=== PATIENT | female | born 1975 | race Caucasian/White ===

== ENCOUNTER 2020-04-03 19:40 | Emergency (ER) | payer BC ==
[2020-04-03] MEDS ORDERED: Lidocaine 4% Cream 5 GM TUBE w/ Tegaderm ONE (19:52)
[2020-04-03] MEDS ORDERED: Adacel (T-DAP) 0.5 ML SYRINGE ONE (20:33)
[2020-04-03] MEDS ORDERED: traMADol HCl 50 MG TAB ONE (20:57)
[2020-04-03] MEDS ORDERED: Ibuprofen 800 MG TAB ONE (20:57)
--- NOTE | 2020-04-03 21:34 | CT ---
CT OF THE BRAIN WITHOUT CONTRAST: Date: 04-03-2020 FINDINGS: The ventricles are normal in size with no shift. No intracranial bleeding or extraaxial hematoma was seen. There is no sign of mass, edema, or stroke. An area of scalp injury is seen in the left frontal region, but the underlying skull appears intact with no sign of fracture. The visible paranasal sinu ses and mastoid air cells were clear. IMPRESSION: No acute intracranial findings. Preliminary report called to Dr. Gagnon at 2011 on 04-03-2020. POS: HOME
== END 2020-04-03 21:10 | disposition home or self-care (01) ==
LOC: BURERS 19:40
DX: S01.01XA Laceration without foreign body of scalp, initial encounter (principal); W22.8XXA Striking against or struck by other objects, initial encounter
CPT/HCPCS: 12002; 70450; 90471; 90715

== ENCOUNTER 2021-09-03 22:23 | Emergency (ER) | payer BC ==
[2021-09-03 23:20] LABS: #Basophils 0.1 thou/uL (0.0-0.2); #Eosinphils 0.6 thou/uL (0.0-0.7); #Lymphocytes 2.5 thou/uL (1.20-3.40); #Monocytes 0.6 thou/uL (0.11-0.59); #Neutrophils 6.4 thou/uL (1.40-6.50); %Basophils 0.9 % (0.0-1.0); %Eosinophils 5.5 % (0.0-10.0); %Lymphocytes 24.6 % (21.0-51.0); %Monocytes 5.7 % (0.0-10.0); %Neutrophils 63.3 % (42.0-75.0); Hemoglobin 13.7 g/dL (12.0-16.0); Mean Corpuscular HGB CONC 34.4 g/dL (32.0-36.0); Mean Corpuscular Hemoglobin 30.5 pg (27.0-31.0); Mean Corpuscular Volume 88.7 fL (78.0-98.0); Platelet Count 294 thou/uL (130-400); RBC Distribution Width 11.9 % (11.5-14.5); Red Blood Cell (RBC) Count 4.51 mill/uL (4.20-5.40); White Blood Cell (WBC) Count 10.1 thou/uL (4.8-10.8)
[2021-09-03 23:42] LABS: ALT (SGPT) 49 U/L (8-55); AST (SGOT) 93 U/L (5-34); Alkaline Phosphatase 93 U/L (40-110); Anion Gap 15 mmol/L (10-20); BUN (Urea Nitrogen) 14 mg/dL (7.0-18.7); Bilirubin, Total 0.5 mg/dL (0.2-1.2); Calc. Creatinine Clearance 0 mL/min (70-130); Carbon Dioxide 27 mmol/L (22-29); Chloride 101 mmol/L (98-107); Globulin 3.2 g/dL (2.4-3.5); Glucose 127 mg/dL (70-105); Potassium 3.7 mmol/L (3.5-5.1); Protein, Total 7.2 g/dL (6.0-8.3); Sodium 139 mmol/L (136-145)
[2021-09-04 00:05] LABS: Bilirubin Negative (Negative); Blood, Urine Negative (Negative); Clarity Clear (Clear); Glucose, Urine (Dipstick) Negative (Negative); Ketone, Urine Negative (Negative); Leukocyte Negative (Negative); Nitrite Negative (Negative); Pregnancy Test - Urine (BHCG) Negative (Negative); Pregu Control Background? CLEAR/WHITE (CLR/WHITE); Pregu Control Bar Appear? YES (CONTROL BAR); Protein, Urine (Dipstick) Negative (Neg-Trace); Urobilinogen 0.2 mg/dL (Less than 2)
[2021-09-04] MEDS ORDERED: predniSONE 20 MG TAB ONE ×4 (01:01→01:03)
[2021-09-04] MEDS ORDERED: Mag-Al Plus 1200 MG/1200 MG/120 MG/30 ML UDCUP ONE (01:02)
[2021-09-04] MEDS ORDERED: Lidocaine Viscous Sol 2% 15 ml UD Cup ONE (01:02)
== END 2021-09-04 01:11 | disposition home or self-care (01) ==
LOC: BURERS 22:23
DX: K29.70 Gastritis, unspecified, without bleeding (principal); G62.9 Polyneuropathy, unspecified; R29.700 NIHSS score 0
CPT/HCPCS: 36415; 71045; 80053; 81003; 81025; 83690; 83880; 84484; 85025; 93005; J7512